=== PATIENT | male | born 1985 | race Caucasian/White ===

== ENCOUNTER 2022-05-26 00:06 | Emergency (ER) | payer OTHER, SELFPAY ==
--- NOTE | ~2022-05-26 | XR_ITS ---
XR shoulder LT min 2V DATE: 05/26/2022 01:12 INDICATION: Left shoulder pain. History of dislocation. TECHNIQUE: 3 views COMPARISON: None FINDINGS: There is anterior glenohumeral dislocation. No fracture is detected. Normal alignment at the acromioclavicular joint. IMPRESSION: Left anterior glenohumeral dislocation Reviewed, dictated and finalized at location A. SPLITTER
--- NOTE | ~2022-05-26 | XR_ITS ---
XR shoulder LT min 2V DATE: 05/26/2022 01:49 INDICATION: Postoperative reduction examination TECHNIQUE: Portable AP and Neer views COMPARISON: None FINDINGS: There is reduction of anterior dislocation at the glenohumeral joint. Normal alignment at t he glenohumeral and acromioclavicular joints. No fracture is detected. IMPRESSION: Reduction of anterior left glenohumeral joint dislocation Reviewed, dictated and finalized at location A. [place] TECHNICIAN
[2022-05-26 00:13] VITALS: BP 172/124; PULSE 69; RESP 20; TEMP 36.3; O2SAT 96
--- NOTE | 2022-05-26 00:54 | ED.UPPEXIN ---
HPI - Extremity Injury (Upper) General Chief Complaint: Extremity Injury, Upper <Viridiana Monzon PA-C - Last Filed: 05/26/22 02:29> Stated Complaint: right shoulder <Viridiana Monzon PA-C - Last Filed: 05/26/22 02:29> Time Seen by Provider: 05/26/22 00:17 <Viridiana Monzon PA-C - Last Filed: 05/26/22 02:29> Source: patient <MIL Evans Last Filed: 05/26/22 02:29> Mode of arrival: ambulatory <Viridiana Monzon PA-C - Last Filed: 05/26/22 02:29> Limitations: no limitations <Viridiana Monzon PA-C - Last Filed: 05/26/22 02:29> History of Present Illness HPI narrative: This is a 37-year-old male that presents to the emergency department for left shoulder pain. Reports he had bent down to reach for something. He felt immediate pain in the shoulder. Reports he has dislocated the shoulder multiple times and felt he had once again dislocated his shoulder. Reports decreased range of motion in the shoulder. Denies numbness. <Viridiana Monzon PA-C - Last Filed: 05/26/22 02:29> Related Data Allergies/Adverse Reactions: Allergies Allergy/AdvReac Type Severity Reaction Status Date / Time No Known Allergies Allergy Unverified 03/10/18 15:05 <Viridiana Monzon PA-C - Last Filed: 05/26/22 02:29> Review of Systems Review of Systems: CONSTITUTIONAL: Denies fever MUSCULOSKELETAL: Reports joint pain, and myalgia. NEUROLOGIC: Denies numbness <Viridiana Monzon PA-C - Last Filed: 05/26/22 02:29> CONSTITUTIONAL: Denies night sweats. EYES: No eye pain ENT: Denies rhinorrhea CARDIOVASCULAR: Denies palpitations RESPIRATORY: Denies hemoptysis GASTROINTESTINAL: Denies hematemesis GENITOURINARY: Denies hematuria. SKIN: Denies rash MUSCULOSKELETAL: Denies myalgia. NEUROLOGIC: Denies weakness. PSYCHIATRIC: Denies delusions <Spike Lorenzo MD - Last Filed: 05/26/22 07:14> All systems reviewed & are unremarkable except as noted in HPI and below <Viridiana Monzon PA-C - Last Filed: 05/26/22 02:29> [facility] [place] Past Medical History Medical History: Medical History (Updated 05/26/22 @ 02:23 by Viridiana Monzon PA-C) History of hypertension <Viridiana Monzon PA-C - Last Filed: 05/26/22 02:29> Family History Family History: Family History (Updated 02/16/16 @ 23:21 by DOCTOR UNKNOWN) Mother Patient's mother is in good health Sibling Patient's sister is in good health Father Family history of lymphoma Patient's father is <Viridiana Monzon PA-C - Last Filed: 05/26/22 02:29> Social History Social History: Social History Smoking status: Never smoker Second hand tobacco smoke exposure: No Alcohol intake: current <Viridiana Monzon PA-C - Last Filed: 05/26/22 02:29> Exam Narrative: GENERAL: Well-appearing, well-nourished, and in no acute distress. HEAD: Normocephalic, atraumatic. EYES: EOMI. EXTREMITIES: Decreased active ROM in the left shoulder with obvious deformity. Normal radial pulse. Normal sensation SKIN: Warm, dry, no rash. NEURO: No focal deficits. Alert and oriented x3. PSYCH: Normal mood and affect <Viridiana Monzon PA-C - Last Filed: 05/26/22 02:29> APPEARANCE: No apparent distress. Head: atraumatic. EYES: EOMI, NOSE: Atraumatic NECK: Trachea midline RESPIRATORY: No increased rate of breathing CARDIOVASCULAR: RRR, ABDOMINAL: Non-distended MUSCULOSKELETAl: Deformity to the left shoulder. Patient is holding the arm next to his body and internally rotated. Anesthesiology Physician strength is intact. Patient is able to give a thumbs up, okay sign and dorsiflex his wrist against pressure. There is no paresthesias over the lateral deltoid. NEURO: Alert. Moving 4/4 extremities SKIN:: Warm, dry. Normal color PSYCHIATRIC: Normal affect <Spike Lorenzo MD - Last Filed: 05/26/22 07:14> Course BONE DRIER OPERATOR/PA Physician Supervision For this encounter, I have reviewed the mid-level provider documentation, treatment plan and medical
--- NOTE | 2022-05-26 01:15 | PC.NURSE ---
Verbal consent given for moderate sedation per patient.
[2022-05-26] MEDS: fentaNYL CITRATE INJ (*CRX) 100 MCG/2 ML VIAL 50 MCG IV PUSH ×2 (01:17→01:34)
[2022-05-26] MEDS: PROPOFOL IV EMULSION 200 MG/20 ML VIAL 100 MG IV PUSH (01:25)
[2022-05-26 01:30] VITALS: PULSE 84; RESP 18; TEMP 37.1; O2SAT 100
--- NOTE | 2022-05-26 01:33 | PC.NURSE ---
VORB another 50mcg of fentanyl
[2022-05-26 01:45] VITALS: BP 179/107; PULSE 90; RESP 18; TEMP 37; O2SAT 99
[2022-05-26 01:55] VITALS: BP 182/117; PULSE 100; RESP 18; O2SAT 96
--- NOTE | 2022-05-26 02:52 | PC.NURSE ---
IV removed with catheter intact. All questions answered. Pt ambulatory out of ED c steady, even, unassisted gait with family member.
== END 2022-05-26 02:52 | disposition home or self-care (01) ==
PROVIDERS: Emergency Provider Emergency Medicine; PCP Family Medicine
DX: M24.412 Recurrent dislocation, left shoulder (principal); I10 Essential (primary) hypertension
CPT/HCPCS: 23650; 73030; 96374; 99285; J2704; J3010

== ENCOUNTER 2023-09-21 16:15 | Observation (INO) | payer OTHER, SELFPAY ==
[2023-09-21] VITALS (30 sets, daily range): BP systolic 163–194; BP diastolic 86–135; PULSE 55–77; RESP 11–24; TEMP 36.3–36.4; O2SAT 94–100; BMI 26.4
--- NOTE | ~2023-09-21 | MR_ITS ---
EXAMINATION: MR brain/brain stem wo con DATE: 09/22/2023 09:15 INDICATION: Right-sided numbness. TECHNIQUE: Magnetic resonance imaging (MRI) of the brain and brainstem was performed without intraven ous contrast. COMPARISON: Head CT 09/21/2023 FINDINGS: There is an acute infarct in the left thalamus. There are scattered areas of nonspecific in creased T2-weighted signal intensity in the cerebral white matter. There is no intracranial hemorrhag e or abnormal mass lesion. The ventricles are normal in size. There is mild mucosal thickening in the ethmoid sinuses. The mastoid air cells are normal. The orbits are normal. IMPRESSION: 1. 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 2. Mild nonspecific cerebral white matter disease, which likely represents chronic small vessel ische shannon disease. Reviewed, dictated and finalized at location E. NIC MANAGER IMPRESSION: 1. 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 2. Mild nonspecific cerebral white matter disease, which likely represents christian science reader viviana small vessel ischemic disease.
--- NOTE | ~2023-09-21 | US_ITS ---
EXAMINATION: US renal BI, US retroperitoneal duplex ltd DATE: 09/22/2023 14:28 INDICATION: Acute renal insufficiency TECHNIQUE: 1. Multiple grayscale and color Doppler images of the kidneys were obtained. 2. Multiple grayscale and pulsed Doppler images of the aorta and renal arteries were obtained. COMPARISON: None. FINDINGS: Kidneys: The right kidney measures 10.8 x 4.3 x 4.4 cm. The left kidney measures 11.2 x 6.3 x 4.8 cm. The kidn eys demonstrate normal echogenicity. There is no hydronephrosis in either kidney. No stones identifi ed. The bladder is normal. Renal arteries/vascular: Normal triphasic arterial waveforms in the aorta with peak systolic velocity is 130 cm/s. The right r enal artery peak systolic velocity is 94 cm/s in the proximal segment, 85 cm/s in the mid segment, an d 49 cm/s in the distal segment. The left renal artery peak systolic velocity is 54 cm/s in the proxi mal segment, 66 cm/s in the mid segment, and 56 cm/s in the distal segment. IMPRESSION: 1. Normal kidneys with no hydronephrosis. 2. No Doppler evidence of renal artery stenosis. Reviewed, dictated and finalized at location A. WRITER IMPRESSION: 1. Normal kidneys with no hydronephrosis. 2. No Doppler evidence of renal artery stenosis.
--- NOTE | ~2023-09-21 | XR_ITS ---
EXAMINATION: XR chest 1V portable Exam Date/Time: 09/21/2023 18:38 BOTTLE LABELER HISTORY: right sided numbness Comparison: 09/26/2006. RESULT: Lines, tubes, and devices: None. Lungs and pleura: Clear. Cardiomediastinal silhouette: Stable. Other: No acute osseous or upper abdominal finding. IMPRESSION: No acute cardiopulmonary process. Reviewed, dictated and finalized at location K. LE LABELER
--- NOTE | ~2023-09-21 | CT_ITS ---
EXAMINATION: CTA brain carotid DATE: 09/21/2023 19:03 INDICATION: right sided numbness TECHNIQUE: Computed tomographic angiography (CTA) of the head was performed without and with 100 mL O mnipaque-350 intravenous contrast. CTA of the neck was performed with intravenous contrast. Automated exposure control and iterative reconstruction technique were employed. The dose-length product was 1 829.17 mGy-cm. Maximum intensity projection and volume rendered 3D-reconstructions were created by [facility] technologist on a separate workstation. COMPARISON: CT soft tissue neck 03/10/2018. FINDINGS: CT BRAIN: No acute large vessel infarct, intracranial hemorrhage, mass, or hydrocephalus. CTA HEAD: No large vessel occlusion, aneurysm, high flow vascular malformation, nidus or extravasation. Symmetr ic parenchymal enhancement. Patent cerebral veins. CTA NECK: Aortic arch and proximal great vessels: Normal arch anatomy. No significant plaque. Right common carotid, carotid bifurcation, and internal carotid artery: No plaque.There is 0% stenosi s of the proximal right internal carotid artery relative to normal distal artery lumen diameter (NASC ET criteria). Left common carotid, carotid bifurcation, and internal carotid artery: No plaque.There is 0% stenosis of the proximal left internal carotid artery relative to normal distal artery lumen diameter (NASCET criteria). Vertebral arteries: No significant plaque or stenosis. Vertebral arteries co-dominant. Other findings: 9 mm groundglass nodule in the right upper lobe.. IMPRESSION: No acute intracranial process. No large vessel intracranial occlusion, high-grade intracranial stenosis, or aneurysm. No carotid or vertebral artery occlusion, dissection, or significant stenosis. 9 mm groundglass right upper lobe pulmonary nodule. Recommend follow-up low-dose noncontrast CT of [facility] chest in 6 months. Reviewed, dictated and finalized at [facility] K. TAIN OR GLACIER GUIDE IMPRESSION: No acute intracranial process. No large vessel intracranial occlusion, high-grade intracranial stenosis, or an eurysm. No carotid or vertebral artery occlusion, dissection, or significant stenosis. 9 mm groundglass right upper lobe pulmonary nodule. Recommend follow-up low-dos e noncontrast CT of the chest in 6 months.
--- NOTE | 2023-09-21 17:08 | ED.GENADULT ---
HPI - General Adult General Chief complaint: Neuro Symptoms/Deficit <Frandy Enriquez PA-C - Last Filed: 09/22/23 01:54> Stated complaint: right sided numbness onset 1000 <MIL Lewis Last Filed: 09/22/23 01:54> Time Seen by Provider: 09/21/23 17:04 <Frandy Enriquez PA-C - Last Filed: 09/22/23 01:54> Source: patient <MIL Lewis Last Filed: 09/22/23 01:54> Mode of arrival: ambulatory <MIL Lewis Last Filed: 09/22/23 01:54> Limitations: no limitations <MIL Lewis Last Filed: 09/22/23 01:54> History of Present Illness HPI narrative: This is a 38-year-old male with PMH of hypertension who presents to the ED with chief complaint of right-sided paresthesia beginning around 10:00 a.m. this morning. Reports initial sensation pins and needles to the right shoulder radiating down the right arm. He reports it started to radiate to the right side of the face as well. This sensation has been intermittent up to arrival in the ED. he reports about an hour before coming here he started to some intermittent right lower extremity paresthesias as well. States he took Tylenol but is unsure if this helped. Currently he is asymptomatic. Also notes he has been working all weekend cutting down trees, using a chainsaw have been doing a lot of heavy objects. He feels this may be related. States he has not been taking blood pressure medications for several years because he was able to get blood pressure under control with lifestyle modification. Denies weakness, speech change, vision loss, chest pain, confusion, syncope, headache, bowel or bladder dysfunction, the fevers, chills. <MIL Lewis Last Filed: 09/22/23 01:54> Related Data Home medications: Home Medications Medication Instructions Recorded Confirmed tadalafil 5 mg tablet 10 mg PO DAILY 09/21/23 09/21/23 testosterone cypionate 200 mg/mL See Rx Instructions .Route .COMPLEX 09/21/23 09/22/23 intramuscular oil <Frandy Enriquez PA-C - Last Filed: 09/22/23 01:54> Allergies/adverse reactions: Allergies Allergy/AdvReac Type Severity Reaction Status Date / Time No Known Allergies Allergy Unverified 03/10/18 15:05 <Frandy Enriquez PA-C - Last Filed: 09/22/23 01:54> Review of Systems Review of Systems: All systems as dictated in HPI <Frandy Enriquez PA-C - Last Filed: 09/22/23 01:54> PMFSH Past Medical History Medical History: Medical History (Updated 09/22/23 @ 01:54 by Frandy Enriquez PA-C) History of hypertension <Frandy Enriquez PA-C - Last Filed: 09/22/23 01:54> Family History Family History: Family History Mother Patient's mother is in good health Sibling Patient's sister is in good health Father Family history of lymphoma Patient's father is <Frandy Enriquez PA-C - Last Filed: 09/22/23 01:54> Social History Social History: Social History Smoking status: Never smoker Second hand tobacco smoke exposure: No Alcohol intake: current Drinks per week: 2 Substance use: never Substance use type: does not use Do You Feel Safe in your Home?: No Lack of Transportation: No Lack of Food: Never True Current Housing: I Have Housing Concerned About Future Housing: No Difficulty Paying Gas/Electric Bills: No Difficulty Paying for Meds: No Currently Unemployed: No Education: High School Diploma/GED Difficulty w/ Childcare or Family Care: No Spiritual care concerns: No <Frandy Enriquez PA-C - Last Filed: 09/22/23 01:54> Exam Narrative: GENERAL: Well-appearing, well-nourished, and in no acute distress. HEAD: Normocephalic, atraumatic. EYES: PERRLA and EOMI. ENT: Nares clear, no rhinorrhea or epistaxis. Mucous membranes moist. Oropharynx without tonsillar hypertrophy exudate or other lesions. NECK: Supple. No adenopathy or masses. C
--- NOTE | 2023-09-21 17:22 | ECG_ITS ---
Measurements Intervals [place] Rate: 66 P: 16 AK: 166 QRS: -7 QRSD: 90 T: 0 QT: 371 QTc: 391 Interpretive Statements SINUS RHYTHM DELAYED PRECORDIAL R/S TRANSITION INFERIOR INFARCT, AGE INDETERMINATE ABNORMAL ECG NO PREVIOUS ECG AVAILABLE FOR COMPARISON Electronically Signed On 09-21-2023 20:32:18 PROFESSOR OF COMMUNICATION by Guillaume Robison D.O.
[2023-09-21 18:29] LABS: Alanine Aminotransferase 35 U/L (6-50); Albumin Level 4.6 g/dL (3.5-5.1); Alkaline Phosphatase 46 U/L (38-126); Anion Gap 7 mmol/L (8-16); Aspartate Amino Transferase 48 U/L (17-59); Bilirubin,Total 0.5 mg/dL (0.2-1.3); Blood Urea Nitrogen 23 mg/dL (9-20); Calcium 10.3 mg/dL (8.4-10.2); Carbon Dioxide 31 mmol/L (22-30); Chloride 102 mmol/L (98-107); Estimated CRCL calculation 71 ml/min; Estimated Glomerular Filt Rate 52; Glucose 92 mg/dL (65-110); Potassium 3.7 mmol/L (3.4-5.0); Sodium 140 mmol/L (137-145)
[2023-09-21 18:46] LABS: Prothrombin Time 13.5 Seconds (11.1-14.7)
[2023-09-21 18:47] LABS: Partial Thromboplastin Time 29.6 SECONDS (22.3-36.8)
[2023-09-21 18:57] LABS: Basophils Percent Auto 0.2 % (0.2-1.2); Eosinophils Absolute Auto 0.1 K/mm3 (0-0.3); Eosinophils Percent Auto 1.8 % (0-4.4); Hematocrit 40.7 % (42.0-52.0); Hemoglobin 13.6 g/dL (14.0-18.0); Immature Granulocyte Absolute 0.01 K/mm3 (0.00-0.031); Immature Granulocyte Percent A 0.2 % (0-0.5); Lymphocytes Absolute Auto 1.79 K/mm3 (0.9-3.2); Mean Corpuscular HGB Conc 33.4 g/dl (32-36); Mean Corpuscular Hemoglobin 29.7 pg (26-34); Mean Corpuscular Volume 88.9 fl (80-100); Mean Platelet Volume 9.7 fl (7.4-10.4); Monocytes Absolute Auto 0.3 K/mm3 (0.1-0.6); Monocytes Percent Auto 5.5 % (2.6-8.5); Neutrophils Absolute Auto 3.7 K/mm3 (1.3-6.7); Neutrophils Percent Auto 62.3 % (45.5-73.1); Platelet Count Result 178 k/mm3 (150-375); Red Blood Count 4.58 M/mm3 (4.6-6.20); Red Cell Distribution Width 12.3 % (11.5-14.5)
[2023-09-21 20:00] LABS: Appearance Urine Clear (Clear); Bilirubin Urine Negative (Negative); Blood Urine Negative (Negative); Color Urine Yellow (Yellow); Glucose Urine UA Negative (Negative); Ketones Urine Negative (Negative); Leukocyte Esterase Ur Negative LEU/UL (Negative); Nitrate Urine Negative (Negative); Protein Urine Negative (Negative); Urobilinogen Urine 0.2 mg/dL (<2.0)
[2023-09-21 20:23] LABS: Add Urine Microscopic? NO; Specific Grav Ur 1.025 (1.001-1.035)
[2023-09-21] MEDS: ASPIRIN 81 MG CHEWABLE TABLET 162 MG PO (21:03)
[2023-09-21] MEDS: ATORVASTATIN 40 MG TABLET 80 MG PO (21:04)
[2023-09-21] MEDS: CLOPIDOGREL BISULFATE 75 MG TABLET 150 MG PO (21:04)
--- NOTE | 2023-09-21 21:18 | PM.IMHP ---
H&P: HPI History of Present Illness Date/Time: 09/21/23 21:18 Chief Complaint: Paresthesias Narrative: This is a pleasant 38-year-old male with past medical history hypertension presenting with complaint of right face, arm, and leg numbness. He reports being at [employer] around 10:00 a.m. at which point he felt the sudden onset of numbness and tingling of his entire right arm his right thigh and the angle of his right mouth and right side of his chin. He took Tylenol which resolved the symptoms for many hours but have since returned and they wax and wane. In the ED his numbness has resolved but he does complain of tingling still. Workup revealed blood pressure of 174/123, BUN 23, creatinine 1.5, chest x-ray unremarkable, head and neck CTA without intracranial process or intracranial occlusion or vertebral artery/carotid occlusion, 9 mm ground-glass right upper lobe pulmonary nodule. The patient was told to stop taking his low-dose lisinopril for some time now as his blood pressure was low. He does have white coat hypertension and usually after a few blood pressure checks in a doctor's office his blood pressure comes down. He otherwise checks his blood pressure every other day at home and they have been in normal ranges. He denies smoking or excessive alcohol use or illicit drug use. Review of Systems Review of Systems: All systems reviewed & are unremarkable except as noted in HPI and below PMFSH Past Medical History Medical History (Updated 09/21/23 @ 21:25 by Nory Jefferson MD) History of hypertension Family History Family History (Updated 02/16/16 @ 23:21 by DOCTOR UNKNOWN) Mother Patient's mother is in good health Sibling Patient's sister is in good health Father Family history of lymphoma Patient's father is Social History Social History Smoking status: Never smoker Second hand tobacco smoke exposure: No Alcohol intake: current Meds Home Medications and Allergies Allergies Allergy/AdvReac Type Severity Reaction Status Date / Time No Known Allergies Allergy Unverified 03/10/18 15:05 Vital Signs Vital Signs - 24 hr 09/21/23 16:23 09/21/23 19:00 09/21/23 19:00 Temperature 97.6 F Pulse Rate 70 64 Respiratory Rate 16 Blood Pressure 194/112 H Pulse Oximetry 100 96 09/21/23 17:22 09/21/23 17:42 09/21/23 17:45 Temperature Pulse Rate 68 69 71 Respiratory Rate 11 L 16 13 Blood Pressure Pulse Oximetry 97 98 09/21/23 17:46 09/21/23 18:09 09/21/23 18:15 Temperature Pulse Rate 74 69 65 Respiratory Rate 13 15 17 Blood Pressure 186/111 H Pulse Oximetry 97 96 99 09/21/23 18:30 09/21/23 19:04 09/21/23 19:15 Temperature Pulse Rate 65 63 67 Respiratory Rate 20 11 L 17 Blood Pressure Pulse Oximetry 97 97 99 09/21/23 20:55 09/21/23 21:00 Temperature Pulse Rate 63 62 Respiratory Rate 19 24 H Blood Pressure Pulse Oximetry 97 98 Exam Const: General: comfortable and no acute distress Other: A&O x4. Accompanied by 2 family members Eyes: Pupils: Equal, round and reactive pupils present Resp: Effort & Inspection: normal respiratory effort Auscultation: clear to auscultation bilaterally Cardio: Rate: regular rate Rhythm: regular rhythm GI: GI Palp: Yes Soft to palpation and No Tenderness to palpation present (GI) Neuro: General: deep tendon reflexes 2+ bilaterally Speech: normal speech Motor exam (neuro): 5/5 motor strength present throughout Sensory Exam: normal sensation Other: Cranial nerves 2-12 grossly intact. No ataxia. Visual jones intact. Sensation to sharp and dull touch intact x4. Extrem: General: no edema H&P: Results Labs Labs: Short CBC 09/21/23 Range/Units 18:52 WBC 6.0 (4.5-10.0) K/mm3 Hgb 13.6 L (14.0-18.0) g/dL Hct 40.7 L (42.0-52.0) % Plt Count 178 (150-375) k/mm3 [facility] 09/21/23 17:02 Sodium 140 Potassium 3.7 Chloride 102 C
--- NOTE | 2023-09-21 21:18 | PC.NURSE ---
Pt continues to have higher blood pressures. RN changed blood pressure cuffs to a larger size and blood pressure remains elevated.
[2023-09-21] MEDS: amLODIPine BESYLATE 5 MG TABLET PO (21:23)
--- NOTE | 2023-09-21 21:57 | ECG_ITS ---
Measurements Intervals [place] Rate: 59 P: 50 MS: 165 QRS: -10 QRSD: 94 T: 4 QT: 401 QTc: 397 Interpretive Statements SINUS BRADYCARDIA DELAYED PRECORDIAL R/S TRANSITION CONSIDER INFERIOR INFARCT, AGE INDETERMINATE ABNORMAL ECG COMPARED TO ECG 09/21/2023 17:37:40 SINUS BRADYCARDIA NOW PRESENT Electronically Signed On 09-22-2023 10:15:57 ORNAMENTAL METAL WORKER HELPER by Guillaume Robison D.O.
[2023-09-21 22:54] LABS: Cholesterol 226 mg/dL (0-200); HDL Direct 53 mg/dL; Triglycerides 218 mg/dL (<150)
[2023-09-21 23:05] LABS: LDL Cholesterol Direct 130 mg/dL
--- NOTE | 2023-09-21 23:40 | ADMGEN ---
This patient, Ciaran Moore, was admitted to IMU Room 205-02. @0938 Patient/family oriented to hospital policies and general routines including ID bracelet, bed and alarms, visiting hours, pain management, procedures, bathroom and other care routines, personal items, smoking policy, room service/diet, and visiting hours. Information on how to activate the Rapid Response Team has been discussed. Patient/Family are encouraged to report perceived risks to care and to ask questions if they do not understand what they are told or what they should do.
[2023-09-22] VITALS (14 sets, daily range): BP systolic 164–179; BP diastolic 79–108; PULSE 47–85; RESP 14–18; TEMP 36.1–36.4; O2SAT 96–100
--- NOTE | 2023-09-22 | ECHO_ITS ---
Patient Info Name: Ciaran Moore Age: 38 years : 1985 Gender: Male Ht: 75 in Wt: 209 lbs BSA: 2.25 m2 HR: 58 bpm BP: 179 / 108 mmHg Heart Rhythm: Sinus Rhythm Technical Quality: Good Exam Date: 09/22/2023 9:45 AM Exam Location: Echo Lab Patient Status: Inpatient Admit Date: 09/21/2023 Staff Ordering Physician: Nory Jefferson MD Optician Apprentice: Bianca Kenyon RDCS Attending Provider: Nory Jefferson MD Exam Type: CA echo doppler w bubble study Study Info Indications - TIA Complete two-dimensional, color flow and Doppler transthoracic echocardiogram is performed. Contrast/Agitated Saline Contrast/Ag. Saline: Agitated Saline Amount: 20.00 ml Administered By: Felisa Calzada RDCS Existing IV Access: Yes IV Access Condition: patent with no signs of infiltration Summary 1. Complete two-dimensional, color flow and Doppler transthoracic echocardiogram is performed. 2. Left ventricular chamber dimension is normal. 3. Left ventricular systolic function is normal, estimated at 55-60%. 4. There is mildly increased left ventricular wall thickness. 5. The left ventricular diastolic function is grade I diastolic dysfunction. 6. Intact interatrial septum visualized by color flow and agitated saline imaging. 7. There is mild mitral valve regurgitation. 8. There is mild tricuspid valve regurgitation. Left Ventricle Left ventricular chamber dimension is normal. Left ventricular systolic function is normal, estimated at 55-60%. There is mildly increased left ventricular wall thickness. The left ventricular diastolic function is grade I diastolic dysfunction. Right Ventricle Right ventricular chamber dimension is normal. Right ventricular systolic function is normal. Left Atria Left atrial chamber dimension is normal. Right Atria Right atrial chamber dimension is normal. Atrial Septum Intact interatrial septum visualized by color flow and agitated saline imaging. Aortic Valve The aortic valve is trileaflet. There is no aortic valve sclerosis. There is no aortic valve stenosis. There is trace aortic valve regurgitation. Pulmonic Valve The pulmonic valve is normal. There is no pulmonic valve stenosis. There is trace pulmonic regurgitation. Mitral Valve The mitral valve has normal leaflets. There is no mitral valve stenosis. There is mild mitral valve regurgitation. Tricuspid Valve The tricuspid valve leaflets are normal. There is no significant tricuspid valve stenosis. There is mild tricuspid valve regurgitation. No pulmonary hypertension, estimated pulmonary arterial systolic pressure is 26 mmHg. Pericardium/Pleural The pericardium appears normal. There is trivial pericardial effusion. Inferior Vena Cava Normal inferior vena cava with >50% collapse upon inspiration consistent with normal right atrial pressure, 10 mmHg. Aorta The aortic root size at the sinus of Valsalva is normal. Left Ventricular Outflow Tract Name Value Normal LVOT 2D LVOT Diameter 2.1 cm LVOT Doppler LVOT Peak Gradient 3 mmHg LVOT Mean Gradient 2 mmHg LVOT VTI 1
[2023-09-22 04:55] LABS: Hematocrit 43.4 % (42.0-52.0); Hemoglobin 14.3 g/dL (14.0-18.0); Mean Corpuscular HGB Conc 32.9 g/dl (32-36); Mean Platelet Volume 9.8 fl (7.4-10.4); Platelet Count Result 171 k/mm3 (150-375); Red Blood Count 4.77 M/mm3 (4.6-6.20); Red Cell Distribution Width 12.3 % (11.5-14.5)
[2023-09-22 05:06] LABS: Anion Gap 8 mmol/L (8-16); Blood Urea Nitrogen 20 mg/dL (9-20); Calcium 9.6 mg/dL (8.4-10.2); Carbon Dioxide 27 mmol/L (22-30); Chloride 103 mmol/L (98-107); Estimated CRCL calculation 82 ml/min; Estimated Glomerular Filt Rate > 60; Glucose 97 mg/dL (65-110); Magnesium 2.3 mg/dL (1.6-2.3); Potassium 3.5 mmol/L (3.4-5.0); Sodium 138 mmol/L (137-145)
[2023-09-22 05:47] LABS: Hemoglobin A1C 5.4 % (<5.7)
[2023-09-22] MEDS: CLOPIDOGREL BISULFATE 75 MG TABLET PO (08:33)
[2023-09-22] MEDS: amLODIPine BESYLATE 5 MG TABLET PO (08:33)
[2023-09-22] MEDS: ASPIRIN 81 MG CHEWABLE TABLET PO (08:33)
[2023-09-22 09:31] LABS: Parathyroid Intact 43.2 pg/mL (7.5-53.5)
[2023-09-22 09:33] LABS: Vitamin D 25 Hydroxy 30.7 ng/mL
[2023-09-22 09:40] LABS: Phosphorus 3.3 mg/dL (2.5-4.5)
[2023-09-22 11:42] LABS: CRP < 0.5 mg/dL (<1.0)
[2023-09-22 11:50] LABS: Erythrocyte Sedimentation Rate 12 mm/hr (0-20)
--- NOTE | 2023-09-22 13:01 | PC.NURSE ---
Nurse called Dr. Valera to report MRI results @ 4525. No new orders received.
--- NOTE | 2023-09-22 13:25 | PCOTNOTE ---
Attempted to see pt. for occupational therapy evaluation. Pt. currently having testing done in room, not available for participation at this time. Nursing aware. Following.
--- NOTE | 2023-09-22 17:50 | PM.DS ---
DS: Admitting Diagnosis Discharge Date 09/22/23 Admitting Diagnosis Right sided numbness. DS: Discharge Diagnosis Discharge Diagnosis (1) CVA (cerebral vascular accident): Code(s): I63.9 - Cerebral infarction, unspecified Status: Acute (2) Hypertension: Qualifiers: Hypertension type: unspecified Qualified Code(s): I10 - Essential (primary) hypertension Code(s): I10 - Essential (primary) hypertension Status: Inactive (3) Pulmonary nodule: Code(s): R91.1 - Solitary pulmonary nodule Status: Acute (4) Elevated serum creatinine: Code(s): R79.89 - Other specified abnormal findings of blood chemistry Status: Acute DS: Summary Hospital Course Reason for hospitalization: 38yo male with HTN here for right sided numbness. Please see H&P for details. Hospital Course: Patient presents with complaint of sudden onset right face, arm, and leg numbness. In the ED his numbness has resolved but he does complain of tingling still. Workup revealed blood pressure of 174/123. CXR was clear. BUN 23, creatinine 1.5. CTA head and neck was without intracranial process or intracranial occlusion or vertebral artery/carotid occlusion. An incidental finding of a 9 mm ground-glass right upper lobe pulmonary nodule noted. He is a nonsmoker. he was given ASA and started on plavix. EKG showing normal sinus rhythm with age indeterminate inferior infarct that was unchanged on repeat. Echo showing EF 55-60%and Grade I diastolic dysfunction with mild LV wall thickness. Intact septum noted. No wall motion abnormalities. UA clear. Renal US showing normal kidneys. No evidence of renal artery stenosis. Brain MRI showing acute infarct in the left thalamus and mild nonspecific cerebral white matter disease. Repeat renal function normalized. Coagulopathy workup ordered. Total cholesterol 226 with LDL 130. Lipitor started. Norvasc started for elevated blood pressure. Discussed with neurology who recommended starting off on lisnopril. Patient felt he had erectile problems with this medication but is willing to try it again (he said 5mg dose with SBP 140-150 range). He was advised not to take tadalafil or testosterone. His symptoms improved. He worked with PT/OT but no concerns noted. Traveling Representative worked with patient about low sodium diet. He was advised to perform light duty at work and avoid strenuous activity. He overall did well and was able to be discharged home on 09/22/23. Status at Discharge Cognitive/behavioral status at discharge: stable Time Spent with Patient Time attestation: Total time spent providing and/or coordinating discharge services: 35 minutes Time spent: Greater than 30 minutes Exam Narrative: AF 97.2 172/105 62 14 96% ra Gen - NARD Chest - CTA bilaterally, nml RR CV - RRR S1/S2. tele showing no significant dysrhythmias Abd - Soft, NT/ND, Positive BS Ext - No pedal edema Neuro - Alert and oriented. Nonfocal exam. Normal sensation to the right hand Psych - Nml mood and affect Skin - Warm and dry DS: Data Data Completed and Pending Labs on day of discharge: Labs from last 24 hours 09/22/23 09/22/23 09/22/23 11:21 11:20 08:10 WBC RBC Hgb Hct MCV MCH MCHC RDW Plt Count MPV Immature Gran % (Auto) Neut % (Auto) Lymph % (Auto) [place] % (Auto) Eos % (Auto) Baso % (Auto) Lymph # (Auto) [place] # (Auto) Eos # (Auto) Baso # (Auto) Abs Immat Gran (auto) Absolute Neuts (auto) Absolute Nucleated RBC Nucleated RBC % ESR 12 PT INR APTT LA PTT Screen Pending dRVVT Screen Pending dRVVT Additional Test Pending Lupus Anticoag Interp Pending Protein C Activity Pending Prot C Funct Activity Pending Protein S Activity Pending Antithrombin III Activ Pending Factor V Leiden Mutat Pending Factor V Mutat Interp Pending Sodium Potassium Chlorid
--- NOTE | 2023-09-22 17:51 | WPDNEURCNPN ---
Assessment and Plan Assessment and plan (1) CVA (cerebral vascular accident): Code(s): I63.9 - Cerebral infarction, unspecified Status: Acute Assessment and Plan: Presentation with numbness in the right side of the body including face leg and right arm does raise possibility of a left cerebral hemisphere. Subsequent MRI of the brain did confirm that he had a left thalamic infarct along with symptoms. The initial CT scan of brain did not show any significant abnormalities. (2) Elevated serum creatinine: Code(s): R79.89 - Other specified abnormal findings of blood chemistry Status: Acute Assessment and Plan: his renal ultrasound and renal artery evaluation are so far normal. This is being followed by hospitalist team. (3) Pulmonary nodule: Code(s): R91.1 - Solitary pulmonary nodule Status: Acute Assessment and Plan: Patient referred by primary care provider and rn lactation Plan I explained to the patient about the findings on MRI of the brain and suggest the patient continue with the aspirin 81 mg a day Plavix 75 mg a day and atorvastatin 40 mg a day until further evaluation. A lipid profile will also for a previous require blood work for hypercoagulable states in view of the age 89. I believe that it has been ordered and I noted that the results are pending. I would like to see him for follow-up in my office in 2-4 weeks time. He should also be controlling his blood pressure keeping in mind a B1 of wide excessive drop or increase in the blood pressure as far as possible. Beta-blockers and DUNIA inhibitors could be considered however I shall leave this up to the primary care provider team. I discussed this with Dr. Kelsey. Consult date: 09/22/23 Time Seen: 11:15 Reason for consult: Possible CVA with right-sided numbness HPI: Ciaran Moore is a 38 year old male seen for initial evaluation. He has history of numbness in the right side of the body. He initially had some numbness in the right arm and thereafter the right face and right leg. He states that he was working hard on Friday on some yd work and he thought that may have been the result of excessive strain particularly on the right arm since he is right-handed. Initially here symptoms in the right arm but later on his angle of the right mild was also numb. Later on some numbness in the right thigh however nearly all the symptoms started improving he still has some tingling in the right hand. He denies any headache or any paralysis or weakness in upper lower limbs. Able to ambulate and do all activities without any problem. Patient's was also present at the time of the evaluation. He has previously been good health and is working. Not smoke or drink any alcohol. No history of diabetes. Grandmother had a stroke. Other than that no other pertinent history is. He has history of hypertension but he was on medications that he came off since his blood pressure has dropped. He was found to high blood pressure in the emergency room. Emergency room physician did discuss his case at the time of presentation number decided to put him on aspirin Plavix and Lipitor at the time and put him in the hospital for observation. Is also in a monitored bed where he had not shown any cardiac arrhythmias so far. Review of Systems Review of Systems: All systems reviewed & are unremarkable except as noted in HPI and below Constitutional: Constitutional: Denies chills, Denies fever(s) and Denies weight loss Eyes: Eyes: Denies diplopia and Denies loss of vision ENT: Denies dizziness, Denies hearing loss and Denies tinnitus Cardiovascular: Cardiovascular: Denies chest pain, Denies syncope and Denies dyspnea Respiratory: Respiratory: Denies cough, Denies dyspnea and Denies wheezing Gastrointestinal: Gastrointestinal: Denies abdominal pain, Denies change in bowel habits and Denies vomiting Genitourinary: Genitourinary: D
--- NOTE | 2023-09-22 19:16 | NEURO_ITS ---
This report was moved to the correct visit on 09/25/2023. The original report was signed by Theresa Valera MD on 09/22/231915. Neurology EEG Report General Information Date of Study: 09/22/23 TEST Electroencephalogram DIAGNOSIS numbness in the right side of the body CLINICAL HISTORY new onset of intermittent numbness in the right side of the body EEG DESCRIPTION During wakefulness, the background activity consists of posterior dominant alpha rhythm at 9-10 hertz with an amplitude of 15-35 microvolts appears more deformed. Anteriorly low amplitude mixed frequency activity was seen. Hyperventilation or 40 shown her not performed. Patient progressed to stage 1 and stage 2 sleep during which vertex waves, sleep spindles and K complexes were seen. IMPRESSION This is a normal EEG obtained during awake and sleep states. This report may have been done utilizing a voice recognition system. Attempts have been made to correct errors. However, there may be uncorrected grammatical, spelling, and recognition errors present. Report Initialized date/time: Theresa Valera MD 09/22/231915 Electronically signed by: Theresa Valera MD 09/22/231915 [facility] [place] [facility]
[2023-09-25 10:55] LABS: Lupus dRVVT Screen 42 sec (<=45); PTT-LA Screen 33 sec (<=40)
[2023-09-25 13:51] LABS: Vitamin D 1,25 (OH)2 Total 13 pg/mL (18-72); Vitamin D2 1,25 (OH)2 <8 pg/mL; Vitamin D3 1,25 (OH)2 13 pg/mL
[2023-09-25 21:50] LABS: Anti Cardio Antibody IgM <2.0 MPL-U/mL (<20.0); Anti Cardiolipin Antibody IgA <2.0 APL-U/mL (<20.0); Anti Cardiolipin Antibody IgG <2.0 GPL-U/mL (<20.0)
[2023-09-26 20:50] LABS: Antithrombin III Activity 135 % normal (80-135)
[2023-09-28 08:45] LABS: Anti Nuclear Antibody Pattern Nuclear, Speckled
[2023-09-29 15:58] LABS: Factor V (Leiden) Mutation NEGATIVE
[2023-10-02 14:28] LABS: PRA 1.03 ng/mL/h (0.25-5.82)
== END 2023-09-22 18:39 | disposition home or self-care (01) ==
LOC: ANHED 17:21 → ANHIMU 23:16 → ANH3MEDSUR 09-23 09:04 → ANHIMU 09-23 09:04
PROVIDERS: Admitting Provider General Practice; Emergency Provider Physician Assistant; PCP Family Medicine; Visit Provider Internal Medicine
DX: I63.9 Cerebral infarction, unspecified (principal); I11.9 Hypertensive heart disease without heart failure; R29.700 NIHSS score 0; R90.82 White matter disease, unspecified; R79.89 Other specified abnormal findings of blood chemistry; R94.31 Abnormal electrocardiogram [ECG] [EKG]; R91.1 Solitary pulmonary nodule; I08.1 Rheumatic disorders of both mitral and tricuspid valves; F10.90 Alcohol use, unspecified, uncomplicated; Z79.899 Other long term (current) drug therapy
CPT/HCPCS: 36415; 70496; 70498; 70551; 71045; 76775; 80048; 80053; 80061; 81003; 81240; 81241; 82088; 82306; 82533; 82652; 83036; 83735; 83970; 84100; 84244; 84443; 85025; 85027; 85300; 85303; 85306; 85610; 85613; 85652; 85730; 86038; 86039; 86140; 86147; 93005; 93306; 93976; 95816; 96375; 97161; 97165; 99285; A9270; G0378; Q9967